=== PATIENT | male | born 1960 | race African-American/Black ===

== ENCOUNTER 2018-01-12 07:47 | Observation (INO) | payer BC ==
[2018-01-12] MEDS ORDERED: NITROGLYCERIN 0.4 MG/TAB 25 TAB/BOTTLE SL ONE (08:29)
[2018-01-12] MEDS ORDERED: ASPIRIN 81 MG TABLET, CHEWABLE PO ONE (08:29)
--- NOTE | 2018-01-12 08:30 | ER Document Report ---
ED General - General Chief Complaint: Chest Pain Stated Complaint: CHEST PAIN Time Seen by Provider: 01/12/18 08:09 Mode of Arrival: Ambulatory Information source: Patient Notes: Patient presents emergency department with complaints of a constant left-sided chest pain that radiates up to his neck and down his left arm since approximately noon yesterday. Patient reports he feels a little short of breath but denies nausea vomiting fever diarrhea. Patient denies history of cardiac disease. Patient reports he does not take medication for anything. He reports that he lifts weights approximately 5 days a week. Denies trauma. Denies overexerting himself with the weights recently. Reports increased pain when he moves. Patient is left-handed. Denies family history of CAD. Reports he was evaluated for chest pain approximately 1-1/2-2 years ago in this hospital. He reports that he received a stress test. Denies history of cardiac cath. TRAVEL OUTSIDE OF THE [place] IN LAST 30 DAYS: No - HPI Patient complains to provider of: CHEST PAIN Onset: Yesterday Onset/Duration: Constant, Persistent Quality of pain: Pressure - Sitting on chest Severity: Severe Pain Level: 4 Associated symptoms: Shortness of breath Exacerbated by: Movement Relieved by: Denies Similar symptoms previously: Yes Recently seen / treated by doctor: No - Related Data Allergies/Adverse Reactions: No Known Allergies Allergy (Verified 09/25/15 08:48) Past Medical History - General Information source: Patient - Social History Smoking Status: Current Every Day Smoker Cigarette use (# per day): Yes Chew tobacco use (# tins/day): No Frequency of alcohol use: Occasional Drug Abuse: None Occupation: [employer] Lives with: Family Family History: Reviewed & Not Pertinent Patient has suicidal ideation: No Patient has homicidal ideation: No - Past Medical History Cardiac Medical History: Denies: Hx Coronary Artery Disease, Hx Heart Attack, Hx Hypertension Pulmonary Medical History: Denies: Hx Asthma, Hx Bronchitis, Hx COPD, Hx Pneumonia Neurological Medical History: Denies: Hx Cerebrovascular Accident, Hx Seizures Endocrine Medical History: Denies: Hx Diabetes Mellitus Type 1, Hx Diabetes Mellitus Type 2 Renal/ Medical History: Denies: Hx Peritoneal Dialysis Musculoskeletal Medical History: Reports Hx Arthritis Psychiatric Medical History: Denies: Hx Depression Past Surgical History: Reports: Hx Appendectomy, Hx Orthopedic Surgery - right knee, Hx Tonsillectomy - adenoids - Immunizations Hx Diphtheria, Pertussis, Tetanus Vaccination: No Review of Systems - Review of Systems Notes: Review HPI for review of systems., All other systems negative Physical Exam - Vital signs Vitals: Temp Pulse Resp BP Pulse Ox 98.1 F 81 16 122/85 99 01/12/18 07:51 01/12/18 07:51 01/12/18 07:51 01/12/18 07:51 01/12/18 07:51 - Notes Notes: PHYSICAL EXAMINATION: GENERAL: Well-appearing and in no acute distress HEAD: Atraumatic, normocephalic. EYES: Pupils equal round, extraocular movements intact, sclera anicteric, conjunctiva are normal. ENT: nares patent, Moist mucous membranes. NECK: Normal range of motion, supple without lymphadenopathy LUNGS: CTAB and equal. No wheezes rales or rhonchi. HEART: Regular rate and rhythm without murmurs chest wall ttp ABDOMEN: Soft, no tenderness. No guarding, no rebound EXTREMITIES: Normal range of motion, no pitting edema. No cyanosis. NEUROLOGICAL: Cranial nerves grossly intact. Normal sensory/motor exams. PSYCH: Normal mood, normal affect. SKIN: Warm, Dry, normal turgor, no rashes or lesions noted - Cardiovascular Rhythm: Regular Heart sounds: Normal auscultation Murmur: No Friction rub: No Dk's crunch: No Gallop: None auscultated Normal capillary refill: Yes Course - Re-evaluation Re-evalutation: 01/12/18 08:35 Patient instructed on plan of care to include redraw cardiac enzymes in approximately 4 hours. Patient also instructed on the importance of letting us know of increased pain. 01/12/18 10:10 Patient resting easily. Reports nitro SL took care of pain. First set of enzymes negative. 01/12/18 13:30 Second troponin negative patient still resting easily. No chest pain at this time. Patient and updated on plan of care to include admission. They agree on admission. Dr Calles consulted, will admit patient to tele. - Vital Signs Vital signs: Temp Pulse Resp BP Pulse Ox 98.1 F 81 15 126/85 H 100 01/12/18 07:51 01/12/18 07:51 01/12/18 15:00 01/12/18 13:00 01/12/18 15:00 - Laboratory Result Diagrams: 01/12/18 08:12 01/12/18 08:12 Laboratory results interpreted by me: 01/12/18 01/12/18 01/12/18 08:12 08:12 08:12 RBC 4.10 L Hgb 12.6 L Hct 37.0 L Hemoglobin A1c % 4.6 L ALT 20 L Creatine Kinase 305 H - Diagnostic Test Radiology reviewed: Image reviewed, Reports reviewed - EXAM DESCRIPTION: CHEST 2 VIEWS COMPLETED DATE/TIME: 01/12/2018 9:30 am REASON FOR STUDY: chest pain COMPARISON: None. EXAM PARAMETERS: NUMBER OF VIEWS: two views TECHNIQUE: Digital Frontal and Lateral radiographic views of the chest acquired. RADIATION DOSE: NA LIMITATIONS: none FINDINGS: LUNGS AND PLEURA: No opacities , masses or pneumothorax. No pleural effusion. MEDIASTINUM AND HILAR STRUCTURES : No masses or contour abnormalities. HEART AND VASCULAR STRUCTURES: Heart normal size. No evidence for failure. BONES: No acute findings. HARDWARE: None in the chest. OTHER: No other significant finding. IMPRESSION: NO ACUTE RADIOGRAPHIC FINDING IN THE CHEST. - EKG Interpretation by Nv EKG shows normal: Sinus rhythm Rate: Normal Rhythm: NSR - Consults [facility] Time consulted: 13:35 Reason for consultation: 01/12/18 13:35 chest pain Consulted provider: will see as inpatient Discharge - Discharge Clinical Impression: Chest pain Qualifiers: Chest pain type: other chest pain Qualified Code(s): R07.89 - Other chest pain Condition: Stable Disposition: ADMITTED INPATIENT Admitting Provider: Hospitalist - [facility] Unit Admitted: Telemetry
[2018-01-12 08:44] LABS: ABSOLUTE EOSINOPHILS # (AUTO) 0.2 10^3/uL (0.0-0.6); ABSOLUTE LYMPHOCYTES (AUTO) 1.4 10^3/uL (0.5-4.7); ABSOLUTE MONOCYTES (AUTO) 0.4 10^3/uL (0.1-1.4); BASOPHILS % (AUTO) 0.9 % (0-2); EOSINOPHILS % (AUTO) 4.3 % (0-6); HEMOGLOBIN 12.6 g/dL (13.5-17.0); LYMPHOCYTES % (AUTO) 35.2 % (13-45); MEAN CORPUSCULAR HEMOGLOBIN 30.7 pg (27.0-33.4); MEAN CORPUSCULAR VOLUME 90 fl (80-97); MONOCYTES % (AUTO) 10.6 % (3-13); PLATELET COUNT 229 10^3/uL (150-450); RED CELL DISTRIBUTION WIDTH 13.6 % (11.5-14.0); TOTAL CELLS COUNTED % (AUTO) 100 %
--- NOTE | 2018-01-12 08:44 | EKG REPORT ---
SEVERITY:- NORMAL ECG - SINUS RHYTHM : Confirmed by: Joshua Moser 12-Jan-2018 08:44:09
[2018-01-12 08:51] LABS: ALANINE AMINOTRANSFERASE 20 U/L (21-72); ALKALINE PHOSPHATASE 59 U/L (38-126); ANION GAP 9 (5-19); ASPARTATE AMINO TRANSFERASE 43 U/L (17-59); BILIRUBIN,DIRECT 0.3 mg/dL (0.0-0.4); BILIRUBIN,TOTAL 1.1 mg/dL (0.2-1.3); BLOOD UREA NITROGEN 15 mg/dL (7-20); CARBON DIOXIDE 29 mmol/L (22-30); CHLORIDE 104 mmol/L (98-107); CREATINE KINASE 305 U/L (55-170); GLUCOSE 105 mg/dL (75-110); POTASSIUM 3.9 mmol/L (3.6-5.0); SODIUM 141.9 mmol/L (137-145); TOTAL PROTEIN 7.2 g/dL (6.3-8.2)
[2018-01-12 09:03] LABS: CREATINE KINASE MB 2.53 ng/mL (<4.55); TROPONIN I 0.019 ng/mL
--- NOTE | 2018-01-12 09:58 | RADIOLOGY REPORT (SQ) ---
EXAM DESCRIPTION: CHEST 2 VIEWS COMPLETED DATE/TIME: 01/12/2018 9:30 am REASON FOR STUDY: chest pain COMPARISON: None. EXAM PARAMETERS: NUMBER OF VIEWS: two views TECHNIQUE: Digital Frontal and Lateral radiographic views of the chest acquired. RADIATION DOSE: NA LIMITATIONS: none FINDINGS: LUNGS AND PLEURA: No opacities, masses or pneumothorax. No pleural effusion. MEDIASTINUM AND HILAR STRUCTURES: No masses or contour abnormalities. HEART AND VASCULAR STRUCTURES: Heart normal size. No evidence for failure. BONES: No acute findings. HARDWARE: None in the chest. OTHER: No other significant finding. IMPRESSION: NO ACUTE RADIOGRAPHIC FINDING IN THE CHEST. TECHNICAL DOCUMENTATION: JOB ID: [id number] [employer]- All Rights Reserved Reading location - IP/workstation name: [email or web address]
[2018-01-12] MEDS ORDERED: ACETAMINOPHEN 325 MG TABLET PO PRN (15:06)
--- NOTE | 2018-01-12 15:33 | PDOC H&P ---
History of Present Illness Admission Date/PCP: 01/12/18 13:45 ROSS MILLER MD Patient complains of: Chest Pain History of Present Illness: RONNIE TERRELL is a 57 year old male with no significant Past medical history patient presented to ED complaining of chest pain for 1 day patient says yesterday around 12 PM when he was at work he started having left-sided chest pain was 8 out of 10 in intensity pressure-like radiating to the left side initially patient did not make too much of it but when he went home he still had the same pain, he also states that the pain was worse with movements and cough. Patient denies having shortness of breath nausea or vomiting. Patient said that he is very active he goes to gym daily but he does not do heavy lifting very often, he also had tenderness to palpation on the left side of his chest. Patient denies any past medical history as well as cardiac problems however he states 3 years ago he had similar chest pain but milder and he was admitted to this hospital a complete cardiac workup was negative for any cardiac abnormalities. Patient also denies any family history of cardiac problems. Patient is current smoker he smokes about 2 cigarettes per day and drinks drinks occasionally he denies any recreational drug abuse. Past Medical History Cardiac Medical History: Denies: Coronary Artery Disease, Myocardial Infarction, Hypertension Pulmonary Medical History: Denies: Asthma, Bronchitis, Chronic Obstructive Pulmonary Disease (COPD), Pneumonia Neurological Medical History: Denies: Seizures Endocrine Medical History: Denies: Diabetes Mellitus Type 1, Diabetes Mellitus Type 2 Musculoskeltal Medical History: Reports: Arthritis Psychiatric Medical History: Denies: Depression Hematology: Denies: Anemia Past Surgical History Past Surgical History: Reports: Appendectomy, Orthopedic Surgery - right knee, Tonsillectomy - adenoids Social History Lives with: Family Smoking Status: Current Every Day Smoker Frequency of Alcohol Use: None Hx Recreational Drug Use: No Drugs: None Hx Prescription Drug Abuse: No Family History Family History: Reviewed & Not Pertinent Parental Family History Reviewed: Yes Children Family History Reviewed: Yes Sibling(s) Family History Reviewed.: Yes Medication/Allergy Home Medications: No Home Medications 01/12/18 Allergies/Adverse Reactions: No Known Allergies Allergy (Verified 09/25/15 08:48) Physical Exam Vital Signs: Temp Pulse Resp BP Pulse Ox 98.1 F 81 11 L 126/85 H 100 01/12/18 07:51 01/12/18 07:51 01/12/18 12:01 01/12/18 13:00 01/12/18 13:00 Results Impressions: Chest X-Ray 01/12/18 08:29 IMPRESSION: NO ACUTE RADIOGRAPHIC FINDING IN THE CHEST. Assessment & Plan - Diagnosis (1) Chest pain Qualifiers: Chest pain type: other chest pain Qualified Code(s): R07.89 - Other chest pain; R07.8 - Other chest pain Is this a current diagnosis for this admission?: Yes Plan: Unlikely cardiac related. Will admit patient to telemetry trend troponins and order stress test to further stratify his risk of having any underlying cardiac problems. Meanwhile we continue aspirin and will also get a lipid panel and hemoglobin A1c. (2) Shortness of breath Is this a current diagnosis for this admission?: Yes Plan: Chest x-ray CBC CMP within normal limits, vitals stable (3) Tobacco use disorder Is this a current diagnosis for this admission?: No Plan: Patient patient was counseled on tobacco cessation
[2018-01-12] MEDS: ENOXAPARIN SODIUM INJ 40 MG/0.4 ML DISP.SYRIN SUBCUT SCH (16:26)
--- NOTE | 2018-01-12 22:11 | EKG REPORT ---
SEVERITY:- NORMAL ECG - SINUS RHYTHM : Confirmed by: Joshua Moser 12-Jan-2018 22:10:31
[2018-01-13 07:45] LABS: HEMATOCRIT 37.5 % (37.9-51.0); HEMOGLOBIN 12.5 g/dL (13.5-17.0); MEAN CORPUSCULAR HGB CONC 33.4 g/dL (32.0-36.0); MEAN CORPUSCULAR VOLUME 90 fl (80-97); PLATELET COUNT 189 10^3/uL (150-450); RED BLOOD COUNT 4.17 10^6/uL (4.35-5.55); RED CELL DISTRIBUTION WIDTH 13.5 % (11.5-14.0); WHITE BLOOD COUNT 3.8 10^3/uL (4.0-10.5)
[2018-01-13 08:03] LABS: TRIGLYCERIDES 61 mg/dL (<150)
[2018-01-13 08:14] LABS: DIRECT LDL 67 mg/dL (<100)
[2018-01-13] MEDS ORDERED: ASPIRIN 81 MG TABLET, CHEWABLE PO SCH (10:00)
[2018-01-13] MEDS: ENOXAPARIN SODIUM INJ 40 MG/0.4 ML DISP.SYRIN SUBCUT SCH (11:37)
[2018-01-13 11:38] VITALS: BP 135/84
== END 2018-01-13 16:39 | disposition home or self-care (01) ==
LOC: ER 07:47 → INTOOBSV 13:45 → EH 13:45 → 4W 19:48
PROVIDERS: ADMIT Internal Medicine; ATTEND Internal Medicine
DX: R07.89 Other chest pain (principal); R06.02 Shortness of breath; F17.210 Nicotine dependence, cigarettes, uncomplicated; Z90.49 Acquired absence of other specified parts of digestive tract
CPT/HCPCS: 93005; 99285; 36415 ×2; 82553; 82550; 85025; 85027; 80053; 84484; 83036; 80061; 93017; 71046; 93010; G0378 ×3; J1650

== ENCOUNTER 2018-04-06 09:46 | Emergency (ER) | payer BC ==
[2018-04-06] MEDS ORDERED: ASPIRIN 81 MG TABLET, CHEWABLE PO ONE (09:49)
[2018-04-06 10:11] LABS: ABSOLUTE BASOPHILS # (AUTO) 0.1 10^3/uL (0.0-0.2); ABSOLUTE EOSINOPHILS # (AUTO) 0.2 10^3/uL (0.0-0.6); ABSOLUTE LYMPHOCYTES (AUTO) 1.7 10^3/uL (0.5-4.7); ABSOLUTE MONOCYTES (AUTO) 0.5 10^3/uL (0.1-1.4); ABSOLUTE NEUT (AUTO) 3.4 10^3/uL (1.7-8.2); BASOPHILS % (AUTO) 1.4 % (0-2); EOSINOPHILS % (AUTO) 3.3 % (0-6); HEMATOCRIT 38.9 % (37.9-51.0); HEMOGLOBIN 12.9 g/dL (13.5-17.0); LYMPHOCYTES % (AUTO) 28.6 % (13-45); MEAN CORPUSCULAR HGB CONC 33.3 g/dL (32.0-36.0); MEAN CORPUSCULAR VOLUME 90 fl (80-97); MONOCYTES % (AUTO) 8.5 % (3-13); PLATELET COUNT 274 10^3/uL (150-450); RED BLOOD COUNT 4.31 10^6/uL (4.35-5.55); SEGMENTED NEUTROPHILS % (AUTO) 58.2 % (42-78); TOTAL CELLS COUNTED % (AUTO) 100 %; WHITE BLOOD COUNT 5.8 10^3/uL (4.0-10.5)
[2018-04-06] MEDS ORDERED: LIDOCAINE 5% (700 MG) TRANSDERMAL ADH..PATCH TP ONE (10:34)
--- NOTE | 2018-04-06 10:43 | RADIOLOGY REPORT (SQ) ---
EXAM DESCRIPTION: CHEST SINGLE VIEW COMPLETED DATE/TIME: 04/06/2018 10:19 am REASON FOR STUDY: bed 10 cp COMPARISON: Two-view chest 01/12/2018 EXAM PARAMETERS: NUMBER OF VIEWS: One view. TECHNIQUE: Single frontal radiographic view of the chest acquired. RADIATION DOSE: NA LIMITATIONS: None. FINDINGS: LUNGS AND PLEURA: No opacities, masses or pneumothorax. No pleural effusion. MEDIASTINUM AND HILAR STRUCTURES: No masses. Contour normal. HEART AND VASCULAR STRUCTURES: Heart normal in size. Normal vasculature. BONES: No acute findings. HARDWARE: None in the chest. OTHER: No other significant finding. IMPRESSION: NO ACUTE RADIOGRAPHIC FINDING IN THE CHEST. TECHNICAL DOCUMENTATION: JOB ID: [id number] [employer]- All Rights Reserved Reading location - IP/workstation name: [email or web address]
[2018-04-06 11:25] LABS: ALANINE AMINOTRANSFERASE 18 U/L (21-72); ALBUMIN 3.7 g/dL (3.5-5.0); ALKALINE PHOSPHATASE 65 U/L (38-126); ANION GAP 7 (5-19); ASPARTATE AMINO TRANSFERASE 26 U/L (17-59); BILIRUBIN,DIRECT 0.2 mg/dL (0.0-0.4); BILIRUBIN,TOTAL 0.7 mg/dL (0.2-1.3); BLOOD UREA NITROGEN 15 mg/dL (7-20); CARBON DIOXIDE 29 mmol/L (22-30); CHLORIDE 106 mmol/L (98-107); CREATINE KINASE 161 U/L (55-170); GLUCOSE 96 mg/dL (75-110); LIPASE 73.8 U/L (23-300); POTASSIUM 4.2 mmol/L (3.6-5.0); SODIUM 142.1 mmol/L (137-145); TOTAL PROTEIN 6.3 g/dL (6.3-8.2)
[2018-04-06 11:35] LABS: CREATINE KINASE MB 2.78 ng/mL (<4.55)
--- NOTE | 2018-04-06 11:36 | RADIOLOGY REPORT (SQ) ---
EXAM DESCRIPTION: SHOULDER BILAT 2 OR MORE VIEWS COMPLETED DATE/TIME: 04/06/2018 11:17 am REASON FOR STUDY: pain chronic bilateral shoulder and neck pain, with sharp pain on movement of bot h shoulders COMPARISON: None. NUMBER OF VIEWS: Three views. TECHNIQUE: Internal rotation, external rotation, and Y view images acquired of the right and left sh oulder. LIMITATIONS: None. FINDINGS: MINERALIZATION: Normal. BONES: No acute fracture or dislocation. No worrisome bone lesions. JOINTS: No right or left glenohumeral dislocation. Mild bony spurring right glenohumeral joint. Mod erate bony spurring right acromioclavicular joint, with mild narrowing of the subacromial space. Lef t acromioclavicular and glenohumeral joint unremarkable. VISUALIZED LUNGS AND RIBS: No pneumothorax. No rib fracture. SOFT TISSUES: No radiopaque foreign body. OTHER: No other significant finding. IMPRESSION: Right acromioclavicular and glenohumeral joint bony spurring. No significant left acrom ioclavicular or glenohumeral joint bony spurring No right or left shoulder acute fracture or dislocation. TECHNICAL DOCUMENTATION: JOB ID: [id number] [employer]- All Rights Reserved Reading location - IP/workstation name: [email or web address]
[2018-04-06 11:37] LABS: TROPONIN I < 0.012 ng/mL
[2018-04-06] MEDS ORDERED: GABAPENTIN 100 MG CAPSULE PO ONE (12:30)
--- NOTE | 2018-04-06 12:52 | ER Document Report ---
ED General - General Chief Complaint: Chest Pain > 30 Stated Complaint: CHEST PAIN Time Seen by Provider: 04/06/18 10:06 TRAVEL OUTSIDE OF THE [place] IN LAST 30 DAYS: No - HPI Patient complains to provider of: Chest pain shoulder pains Notes: Patient coming in for shoulder pain is ongoing he states for last 3 weeks. Patient states most pain is in his left shoulder however developed chest pain earlier this morning. Patient denies any trauma denies any fever chills nausea by diarrhea. Patient endorses had [facility] of his [facility] and of the [facility] no critical pathology was found at that time. Patient states pain sharp shooting associated numbness and tingling feeling down the arm. Otherwise patient is resting healthy upon my evaluation denies any recent travel antibiotics - Related Data Allergies/Adverse Reactions: No Known Allergies Allergy (Verified 04/06/18 09:48) Past Medical History - Social History Smoking Status: Unknown if Ever Smoked Family History: Reviewed & Not Pertinent Patient has suicidal ideation: No Patient has homicidal ideation: No - Past Medical History Cardiac Medical History: Denies: Hx Coronary Artery Disease, Hx Heart Attack, Hx Hypertension Pulmonary Medical History: Denies: Hx Asthma, Hx Bronchitis, Hx COPD, Hx Pneumonia Neurological Medical History: Denies: Hx Cerebrovascular Accident, Hx Seizures Endocrine Medical History: Denies: Hx Diabetes Mellitus Type 1, Hx Diabetes Mellitus Type 2 Renal/ Medical History: Denies: Hx Peritoneal Dialysis Musculoskeletal Medical History: Reports Hx Arthritis Psychiatric Medical History: Denies: Hx Depression Past Surgical History: Reports: Hx Appendectomy, Hx Orthopedic Surgery - right knee, Hx Tonsillectomy - adenoids - Immunizations Hx Diphtheria, Pertussis, Tetanus Vaccination: No Review of Systems - Review of Systems Constitutional: No symptoms reported EENT: No symptoms reported Cardiovascular: Chest pain Respiratory: No symptoms reported Gastrointestinal: No symptoms reported Genitourinary: No symptoms reported Male Genitourinary: No symptoms reported Musculoskeletal: Other - Shoulder pain Skin: No symptoms reported Hematologic/Lymphatic: No symptoms reported Neurological/Psychological: No symptoms reported -: Yes All other systems reviewed and negative Physical Exam - Vital signs Vitals: Resp Pulse Ox 12 100 04/06/18 09:57 04/06/18 09:57 Interpretation: Normal - General General appearance: Appears well, Alert - HEENT Head: Normocephalic, Atraumatic Eyes: Normal Pupils: PERRL - Respiratory Respiratory status: No respiratory distress Chest status: Nontender Breath sounds: Normal Chest palpation: Normal - Cardiovascular Rhythm: Regular Heart sounds: Normal auscultation Murmur: No - Abdominal Inspection: Normal Distension: No distension Bowel sounds: Normal Tenderness: Nontender Organomegaly: No organomegaly - Back Back: Normal, Nontender - Extremities General upper extremity: Normal inspection, Tender - Palpation of the shoulders bilaterally tender along the acromion 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 No: Marciano's sign - Neurological Neuro grossly intact: Yes Cognition: Normal Orientation: AAOx4 [place] Coma Scale Eye Opening: Spontaneous Yazan Coma Scale Verbal: Oriented [place] Coma Scale Motor: Obeys Commands Yazan Coma Scale Total: 15 Speech: Normal Motor strength normal: LUE, RUE, LLE, RLE Sensory: Normal - Psychological Associated symptoms: Normal affect, Normal mood - Skin Skin Temperature: Warm Skin Moisture: Dry Skin Color: Normal Course - Re-evaluation Re-evalutation: 04/06/18 15:25 The patient has atypical chest pain as the patient's chest pain is not suggestive of pulmonary embolus, cardiac ischemia, aortic dissection, or other serious etiology. Given the extremely low risk of these diagnoses further testing and evaluation for these possibilities does not appear to be indicated at this time. The patient has been instructed to return if the symptoms worsen or change in any way. X-rays of the shoulder showed right-sided arthritic changes my personal read shows some calcification of the AC joint. On the left. Discussed at length with the patient reviewed recent stress test that was otherwise negative physical exercise stress test. Patient is EKG troponins are negative. Recommended follow-up with primary care physician for possible MRI for the etiology of his muscle skeletal pain. Recommended the patient start on Neurontin along with Tylenol Motrin for pain control. - Vital Signs Vital signs: Temp Pulse Resp BP Pulse Ox 12 147/92 H 100 04/06/18 13:15 04/06/18 13:16 04/06/18 13:14 - Laboratory Result Diagrams: 04/06/18 10:00 04/06/18 10:39 Laboratory results interpreted by me: 04/06/18 04/06/18 10:00 10:39 RBC 4.31 L Hgb 12.9 L ALT 18 L Discharge - Discharge Clinical Impression: Chest pain, Shoulder pain, Arthritis of right shoulder region Condition: Good Disposition: HOME, SELF-CARE Instructions: Arthritis ([facility]), Chest Wall Pain ([facility]), Chest Pain of Unclear Cause ([facility]), Family Physicians / Practices, Shoulder Injury ([facility]) Additional Instructions: Your laboratory studies chest x-ray EKG did not show any critical pathology today. Your shoulder x-ray does show some arthritic changes in the right very minimal changes in the left I would highly recommend she follow-up with your primary care physician for further imaging studies to evaluate her bilateral shoulder pain. Return to the ER if symptoms worsen. I recommend taking Tylenol Motrin for pain control. He may also try [id number] lidocaine patches. Out with sharp shooting nerve pain we will start you on a medication called Neurontin. Would call your physician today to schedule appointment in 1- 2 weeks. Prescriptions: Gabapentin [Neurontin 100 mg Capsule] 100 mg PO Q12 #60 capsule Forms: Return to Work
[2018-04-06 13:21] VITALS: BP 147/92
--- NOTE | 2018-04-07 07:10 | EKG REPORT ---
SEVERITY:- ABNORMAL ECG - SINUS RHYTHM CONSIDER LEFT VENTRICULAR HYPERTROPHY : Confirmed by: Joshua Moser 07-Apr-2018 07:09:43
== END 2018-04-06 13:23 | disposition home or self-care (01) ==
LOC: ER 09:46
DX: R07.89 Other chest pain (principal); M19.011 Primary osteoarthritis, right shoulder; R20.0 Anesthesia of skin; R20.2 Paresthesia of skin
CPT/HCPCS: 36415; 71045; 80053; 82550; 82553; 83690; 84484; 85025; 85379; 93005; 93010; 99285

== ENCOUNTER → 2018-09-03 | Outpatient (CLI) | payer BC ==
--- NOTE | 2018-09-05 13:25 | RADIOLOGY REPORT (SQ) ---
EXAM DESCRIPTION: MRI RT UPPER EXTREMITY COMBO COMPLETED DATE/TIME: 09/03/2018 9:28 pm REASON FOR STUDY: M25.511 PAIN IN RIGHT SHOULDER M25.511 PAIN IN RIGHT SHOULDER M79.89 OTHER SPECI FIED SOFT TISSUE DISORDERS COMPARISON: None. TECHNIQUE: Multiplanar imaging of the right proximal arm to include T1-weighted, postcontrast T1-ju ghted, and T2-weighted images. CONTRAST TYPE AND DOSE: 15 mL Dotarem. RENAL FUNCTION: Normal GFR greater than 60. LIMITATIONS: None. FINDINGS: BONE MARROW: No suspicious lesions. See separately dictated MRI shoulder from same date. SOFT TISSUES: No skin surface markers are in place to denote the region of interest. Per clinic note , the area lies lateral and inferior to the deltoid muscle. In the subcutaneous tissues overlying th e deltoid, there is slight bulge of otherwise normal-appearing subcutaneous fat. This could represen t an unencapsulated lipoma. No suspicious features. No enhancing masses. Other regional soft tissu es look generally unremarkable. OTHER: No other significant finding. IMPRESSION: 1. Slightly prominent fatty tissue along the lateral inferior deltoid. No discrete mass otherwise no faustina. No enhancing lesions. 2. Please see separately dictated standard MRI shoulder same date for findings related to the shoulde r proper. TECHNICAL DOCUMENTATION: JOB ID: [id number] [employer]- All Rights Reserved Reading location - IP/workstation name: [email or web address]
--- NOTE | 2018-09-05 13:33 | RADIOLOGY REPORT (SQ) ---
EXAM DESCRIPTION: MRI RT UPPER JOINT WITHOUT COMPLETED DATE/TIME: 09/03/2018 9:28 pm REASON FOR STUDY: M25.511 PAIN IN RIGHT SHOULDER M25.511 PAIN IN RIGHT SHOULDER M79.89 OTHER SPECI FIED SOFT TISSUE DISORDERS COMPARISON: Soft tissue mass MRI from same date, see separate dictation. TECHNIQUE: Right shoulder images acquired and stored on PACS. Multiplanar imaging to include fat sen sitive sequences such as T1, water sensitive sequences such as FST2/STIR, cartilage sensitive sequenc es such as FSPD/gradient-echo sequences. LIMITATIONS: Moderate motion artifact on the axial proton density fat saturated sequence. Likely du e to the protracted scanner time necessary to perform both studies today. FINDINGS: BONE MARROW AND CORTEX: See cuff related changes below. JOINT OR BURSAL EFFUSION: Mild effusion. GLENO-HUMERAL ARTICULATION: Normal articulation. No subluxation. No cystic change. No osteophytes or cartilage loss. ACROMION AND AC JOINT: Predominantly dorsal hypertrophic degenerative overgrowth, fairly mild. ROTATOR CUFF AND INTERVAL: Tendinosis and areas of partial tear along cuff insertion. Prominent reac tive bone changes and edema in the lateral/ posterior humeral head along infraspinatus insertion. No cuff muscle atrophy. No full-thickness tear. LABRUM AND BICEPS LABRAL COMPLEX: Suspect type 2 lesion. Tear along the posterosuperior labrum is likely associated with mild paralabral cyst formation. Biceps tendon relatively intact. REMAINDER OF LABRUM AND IGHL : Limited assessment. Generalized probable degenerative loss. PERIARTICULAR AND ADJACENT SOFT TISSUES: No masses or abnormal nodes. OTHER: No other significant finding. IMPRESSION: 1. Cuff disease. Partial tear with considerable reactive bone change in the humeral head. Some of t his may be high-grade partial. No full-thickness gap in the cuff. No atrophy. 2. Superior labral tear. 3. Glenohumeral arthropathy. TECHNICAL DOCUMENTATION: JOB ID: [id number] [employer]- All Rights Reserved Reading location - IP/workstation name: [email or web address]
== END ==
LOC: RAD 19:10
PROVIDERS: ATTEND Physician Assistant
DX: M25.511 Pain in right shoulder (principal); M79.89 Other specified soft tissue disorders

== ENCOUNTER → 2018-10-08 | Outpatient (CLI) | payer BC ==
--- NOTE | 2018-10-08 13:42 | RADIOLOGY REPORT (SQ) ---
EXAM DESCRIPTION: MRI RT LOWER JOINT WITHOUT COMPLETED DATE/TIME: 10/08/2018 11:56 am REASON FOR STUDY: PAIN IN RIGHT KNEE M25.561 PAIN IN RIGHT KNEE COMPARISON: None. TECHNIQUE: Rightknee images acquired and stored on PACS. Multiplanar images include fat sensitive s equences as T1, water sensitive sequences as FST2 or STIR, cartilage sensitive sequences as FSPD, and gradient echo sequences. LIMITATIONS: None. FINDINGS: JOINT AND BURSAE: Small suprapatellar knee joint effusion BONE CORTEX AND MARROW: Subcortical cysts along the medial edge medial tibial plateau. No marrow sig nal abnormalities worrisome for occult fracture or aggressive marrow replacement process ACL: High signal in the distal most attachment of the ACL which is still intact on sagittal images 11 -13. PCL: Intact. MCL: Intact. No periligamentous edema or fluid. LCL: Intact. No periligamentous edema or fluid. LATERAL MENISCUS: No tears. No abnormal signal. MEDIAl MENISCUS: Small tear posterior horn medial meniscus. There is a 3.5 x 1 cm multi septated par ameniscal cyst along the posterior horn medial meniscus best shown on coronal image 21, sagittal imag e 15 and axial image 19. MEDIAL COMPARTMENT: Focal high-grade chondromalacia in the weight-bearing surface medial femoral cond yles coronal image 16. No bone bruises or reactive marrow edema. No osteophytes. LATERAL COMPARTMENT: Cartilage preserved. No bone bruises or reactive marrow edema. No osteophytes. PATELLA: Diffuse high-grade patellar chondromalacia. No subchondral cysts. Medial and lateral retinac gabbie intact. EXTENSOR MECHANISM: Intact. Quadriceps and patella tendons normal. SOFT TISSUES: Adjacent muscles and subcutaneous tissues normal. Normal flow void in popliteal artery and vein. OTHER: No other significant finding. IMPRESSION: Multi septated parameniscal cyst, along the posterior horn medial meniscus High-grade chondromalacia patella TECHNICAL DOCUMENTATION: JOB ID: [id number] [employer]- All Rights Reserved Reading location - IP/workstation name: [email or web address]
== END ==
LOC: RAD 11:15
PROVIDERS: ATTEND Physician Assistant
DX: M25.561 Pain in right knee (principal); M22.41 Chondromalacia patellae, right knee

== ENCOUNTER 2019-03-02 11:03 | Emergency (ER) | payer OTHER, BC ==
[2019-03-02] MEDS ORDERED: ACETAMINOPHEN 325 MG TABLET PO ONE (11:35)
[2019-03-02] MEDS ORDERED: IBUPROFEN 600 MG TABLET PO ONE (11:35)
--- NOTE | 2019-03-02 11:38 | ER Document Report ---
HPI - HPI Time Seen by Provider: 03/02/19 11:29 Pain Level: 5 Context: Patient is a 58-year-old male who presents to the emergency department with a chief complaint of right shoulder pain. 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 Pain is primarily on the posterior aspect of the shoulder. - REPRODUCTIVE Reproductive: DENIES: : Past Medical History - Social History Smoking Status: Former Smoker Chew tobacco use (# tins/day): No Frequency of alcohol use: None Drug Abuse: None Family History: Reviewed & Not Pertinent Patient has suicidal ideation: No Patient has homicidal ideation: No - Past Medical History Cardiac Medical History: Denies: Hx Coronary Artery Disease, Hx Heart Attack, Hx Hypertension Pulmonary Medical History: Denies: Hx Asthma, Hx Bronchitis, Hx COPD, Hx Pneumonia Neurological Medical History: Denies: Hx Cerebrovascular Accident, Hx Seizures Endocrine Medical History: Denies: Hx Diabetes Mellitus Type 1, Hx Diabetes Mellitus Type 2 Renal/ Medical History: Denies: Hx Peritoneal Dialysis Musculoskeletal Medical History: Reports Hx Arthritis Psychiatric Medical History: Denies: Hx Depression Past Surgical History: Reports: Hx Appendectomy, Hx Orthopedic Surgery - right knee, Hx Tonsillectomy - adenoids - Immunizations Hx Diphtheria, Pertussis, Tetanus Vaccination: No Vertical Provider Document - INFECTION CONTROL TRAVEL OUTSIDE OF THE [place] IN LAST 30 DAYS: No Course - Vital Signs Vital signs: Temp Pulse Resp BP Pulse Ox 97.6 F 69 20 136/89 H 100 03/02/19 11:13 03/02/19 11:13 03/02/19 11:13 03/02/19 11:13 03/02/19 11:13 Discharge - Discharge Referrals: GUILLERMINA ONTIVEROS PA [Primary Care Provider] - Follow up as needed
--- NOTE | 2019-03-02 12:21 | ER Document Report ---
ED Medical Screen (RME) - General Chief Complaint: Shoulder Injury Stated Complaint: RIGHT SHOULDER INJURY Time Seen by Provider: 03/02/19 11:29 Primary Care Provider: GUILLERMINA ONTIVEROS PA [Primary Care Provider] - Follow up as needed Notes: Patient is a 58-year-old male who presents to the emergency department with a chief complaint of right shoulder pain. 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 Pain is primarily on the posterior aspect of the shoulder. Exam: Tenderness to posterior aspect of right lateral shoulder. I have greeted and performed a rapid initial assessment of this patient. A comprehensive ED assessment and evaluation of the patient, analysis of test results and completion of medical decision making process will be conducted by an additional ED providers. TRAVEL OUTSIDE OF THE [place] IN LAST 30 DAYS: No - Related Data Allergies/Adverse Reactions: No Known Allergies Allergy (Verified 03/02/19 11:27) Past Medical History - Social History Chew tobacco use (# tins/day): No Frequency of alcohol use: None Drug Abuse: None - Past Medical History Cardiac Medical History: Denies: Hx Coronary Artery Disease, Hx Heart Attack, Hx Hypertension Pulmonary Medical History: Denies: Hx Asthma, Hx Bronchitis, Hx COPD, Hx Pneumonia Neurological Medical History: Denies: Hx Cerebrovascular Accident, Hx Seizures Endocrine Medical History: Denies: Hx Diabetes Mellitus Type 1, Hx Diabetes Mellitus Type 2 Renal/ Medical History: Denies: Hx Peritoneal Dialysis Musculoskeltal Medical History: Reports Hx Arthritis Psychiatric Medical History: Denies: Hx Depression Past Surgical History: Reports: Hx Appendectomy, Hx Orthopedic Surgery - right knee, Hx Tonsillectomy - adenoids - Immunizations Hx Diphtheria, Pertussis, Tetanus Vaccination: No Physical Exam - Vital signs Vitals: Temp Pulse Resp BP Pulse Ox 97.6 F 69 20 136/89 H 100 03/02/19 11:13 03/02/19 11:13 03/02/19 11:13 03/02/19 11:13 03/02/19 11:13 Course - Vital Signs Vital signs: Temp Pulse Resp BP Pulse Ox 97.6 F 69 20 136/89 H 100 03/02/19 11:13 03/02/19 11:13 03/02/19 11:13 03/02/19 11:13 03/02/19 11:13 Doctor's Discharge - Discharge Referrals: GUILLERMINA ONTIVEROS PA [Primary Care Provider] - Follow up as needed
--- NOTE | 2019-03-02 12:26 | RADIOLOGY REPORT (SQ) ---
EXAM DESCRIPTION: SHOULDER RIGHT 2 OR MORE VIEWS COMPLETED DATE/TIME: 03/02/2019 12:18 pm REASON FOR STUDY: shoulder pain COMPARISON: None. NUMBER OF VIEWS: Three views. TECHNIQUE: Internal rotation, external rotation, and Y view images acquired of the right shoulder. LIMITATIONS: None. FINDINGS: MINERALIZATION: Normal. BONES: No acute fracture. No worrisome bone lesions. JOINTS: No dislocation. Acromioclavicular and glenohumeral osteophytosis. Subchondral cystic change at the superolateral humeral head. VISUALIZED LUNGS AND RIBS: No pneumothorax. No rib fracture. SOFT TISSUES: No radiopaque foreign body. OTHER: No other significant finding. IMPRESSION: No acute bony abnormality. Moderate glenohumeral and acromioclavicular osteoarthropathy. TECHNICAL DOCUMENTATION: JOB ID: [id number] [employer]- All Rights Reserved Reading location - IP/workstation name: [email or web address]
--- NOTE | 2019-03-02 12:55 | ER Document Report ---
ED Extremity Problem, Upper - General Chief Complaint: Shoulder Injury Stated Complaint: RIGHT SHOULDER INJURY Time Seen by Provider: 03/02/19 11:29 Primary Care Provider: GUILLERMINA ONTIVEROS PA [Primary Care Provider] - Follow up in 3-5 days SARAH BAJWA MD [ACTIVE PROVISIONAL STAFF] - Follow up in 3-5 days (for orthopedic follow up) TRAVEL OUTSIDE OF THE [place] IN LAST 30 DAYS: No - HPI Notes: 58-year-old male to the emergency department with complaints of right shoulder pain that began after a locker fell at work. He states that he was trying to prevent the locker from hitting his right knee when he tried to catch it with the right arm. He states that the locker fell straight down onto the floor and pulled his shoulder. Since then he has had pain and has difficulty completely lifting the arm over his head. He denies any other injuries. He was given Tylenol and Motrin by triage. He is left hand dominant. - Related Data Allergies/Adverse Reactions: No Known Allergies Allergy (Verified 03/02/19 11:27) Past Medical History - General Information source: Patient - Social History Smoking Status: Former Smoker Chew tobacco use (# tins/day): No Frequency of alcohol use: None Drug Abuse: None Family History: Reviewed & Not Pertinent Patient has suicidal ideation: No Patient has homicidal ideation: No - Past Medical History Cardiac Medical History: Denies: Hx Coronary Artery Disease, Hx Heart Attack, Hx Hypertension Pulmonary Medical History: Denies: Hx Asthma, Hx Bronchitis, Hx COPD, Hx Pneumonia Neurological Medical History: Denies: Hx Cerebrovascular Accident, Hx Seizures Endocrine Medical History: Denies: Hx Diabetes Mellitus Type 1, Hx Diabetes Mellitus Type 2 Renal/ Medical History: Denies: Hx Peritoneal Dialysis Musculoskeletal Medical History: Reports Hx Arthritis Psychiatric Medical History: Denies: Hx Depression Past Surgical History: Reports: Hx Appendectomy, Hx Orthopedic Surgery - right knee, Hx Tonsillectomy - adenoids - Immunizations Hx Diphtheria, Pertussis, Tetanus Vaccination: No Review of Systems - Review of Systems Constitutional: denies: Chills, Fever EENT: No symptoms reported Cardiovascular: denies: Chest pain, Palpitations, Orthopnea, Dyspnea, Syncope, Dizziness, Lightheaded Respiratory: denies: Cough, Short of breath Gastrointestinal: denies: Abdominal pain, Diarrhea, Nausea, Vomiting Musculoskeletal: See HPI, Joint pain Skin: No symptoms reported Hematologic/Lymphatic: No symptoms reported Neurological/Psychological: No symptoms reported -: Yes All other systems reviewed and negative Physical Exam - Vital signs Vitals: Temp Pulse Resp BP Pulse Ox 97.6 F 69 20 136/89 H 100 03/02/19 11:13 03/02/19 11:13 03/02/19 11:13 03/02/19 11:13 03/02/19 11:13 Interpretation: Normal - General General appearance: Appears well, Alert In distress: None - HEENT Head: Normocephalic, Atraumatic Eyes: Normal Pupils: PERRL - Respiratory Respiratory status: No respiratory distress Chest status: Nontender Breath sounds: Normal Chest palpation: Normal - Cardiovascular Rhythm: Regular Heart sounds: Normal auscultation Murmur: No - Extremities Shoulder: Tender - to the right shoulder joint, particularly in the anterior portion of the gleno-humeral joint, there is TTP. Patient cannot forward flex the shoulder greater than 60 degrees. Noted just below the joint, there is a large mobile lipoma on the arm -- measuring approximatley 5 cm in diameter. This is not TTP. There is no evidence of gross deformity, no evidence of shoulder separation. non tender to palpation of the right elbow, wrist, and hand. 5/5 strength in bilateral hands. No snuff box tenderness. Cap refill is less than 2 sec. radial pulses intact and equal - Neurological Neuro grossly intact: Yes Cognition: Normal Orientation: AAOx4 Yazan Coma Scale Eye Opening: Spontaneous Yazan Coma Scale Verbal: Oriented Geismar Coma Scale Motor: Obeys Commands Geismar Coma Scale Total: 15 Speech: Normal Cranial nerves: Normal Cerebellar coordination: Normal Motor strength normal: LUE, RUE, LLE, RLE Sensory: Normal - Psychological Associated symptoms: Normal affect, Normal mood - Skin Skin Temperature: Warm Skin Moisture: Dry Skin Color: Normal Course - Re-evaluation Re-evalutation: Shoulder X-Ray 03/02/19 11:35 IMPRESSION: No acute bony abnormality. Moderate glenohumeral and acromioclavicular osteoarthropathy. Impression: Right shoulder injury -- likely a strain. No dislocation, separation, or fracture seen on XR. noted OA. Will sling the patient, treat pain and send to ortho for follow up. Patient agrees with the plan. - Vital Signs Vital signs: Temp Pulse Resp BP Pulse Ox 97.4 F 65 18 144/98 H 100 03/02/19 12:59 03/02/19 12:59 03/02/19 12:59 03/02/19 12:59 03/02/19 12:59 - Diagnostic Test Radiology reviewed: Reports reviewed Procedures - Immobilization Right Arm Pre-Proc Neuro Vasc Exam: Normal Immobilizer type: Sling Post-Proc Neuro Vasc Exam: Normal Alignment checked and good: Yes Discharge - Discharge Clinical Impression: Right shoulder injury Qualifiers: Encounter type: initial encounter Qualified Code(s): S49.91XA - Unspecified injury of right shoulder and upper arm, initial encounter Right shoulder pain Qualifiers: Chronicity: acute Qualified Code(s): M25.511 - Pain in right shoulder Condition: Stable Disposition: HOME, SELF-CARE Instructions: Shoulder Injury ([facility]) Additional Instructions: USE SLING. FOLLOW UP WITH ORTHOPEDIST. RETURN IF WORSE. TAKE MEDICINES PRESCRIBED. Prescriptions: Hydrocodone/Acetaminophen [[place] 5-325 mg Tablet] 1 tab PO Q6H #10 tablet Methocarbamol [Robaxin 500 mg Tablet] 500 mg PO QID #20 tablet Forms: Return to Work Referrals: GUILLERMINA ONTIVEROS PA [Primary Care Provider] - Follow up in 3-5 days SARAH BAJWA MD [ACTIVE PROVISIONAL STAFF] - Follow up in 3-5 days (for orthopedic follow up)
[2019-03-02 13:09] VITALS: BP 144/98
== END 2019-03-02 13:10 | disposition home or self-care (01) ==
LOC: ER 11:03
DX: S49.91XA Unspecified injury of right shoulder and upper arm, initial encounter (principal); X50.0XXA Overexertion from strenuous movement or load, initial encounter; Y99.0 Civilian activity done for income or pay
CPT/HCPCS: 99283

== ENCOUNTER → 2019-06-02 | Outpatient (CLI) | payer OTHER, BC ==
--- NOTE | 2019-06-02 09:27 | EKG REPORT ---
SEVERITY:- NORMAL ECG - SINUS RHYTHM : Confirmed by: Joshua Moser 02-Jun-2019 09:26:51
[2019-06-02 09:57] LABS: ABSOLUTE EOSINOPHILS # (AUTO) 0.3 10^3/uL (0.0-0.6); ABSOLUTE LYMPHOCYTES (AUTO) 1.9 10^3/uL (0.5-4.7); ABSOLUTE MONOCYTES (AUTO) 0.6 10^3/uL (0.1-1.4); ABSOLUTE NEUT (AUTO) 2.6 10^3/uL (1.7-8.2); BASOPHILS % (AUTO) 0.9 % (0-2); EOSINOPHILS % (AUTO) 6.3 % (0-6); HEMATOCRIT 38.1 % (37.9-51.0); HEMOGLOBIN 12.7 g/dL (13.5-17.0); LYMPHOCYTES % (AUTO) 34.3 % (13-45); MEAN CORPUSCULAR HEMOGLOBIN 29.6 pg (27.0-33.4); MEAN CORPUSCULAR HGB CONC 33.2 g/dL (32.0-36.0); MEAN CORPUSCULAR VOLUME 89 fl (80-97); MONOCYTES % (AUTO) 10.2 % (3-13); PLATELET COUNT 293 10^3/uL (150-450); RED BLOOD COUNT 4.28 10^6/uL (4.35-5.55); RED CELL DISTRIBUTION WIDTH 13.5 % (11.5-14.0); SEGMENTED NEUTROPHILS % (AUTO) 48.3 % (42-78); TOTAL CELLS COUNTED % (AUTO) 100 %; WHITE BLOOD COUNT 5.4 10^3/uL (4.0-10.5)
[2019-06-02 10:08] LABS: APPEARANCE,URINE CLEAR; BILIRUBIN,URINE NEGATIVE (NEGATIVE); COLOR,URINE YELLOW; GLUCOSE, URINE NEGATIVE (NEGATIVE); KETONES,URINE NEGATIVE (NEGATIVE); LEUKOCYTE ESTERASE,URINE NEGATIVE (NEGATIVE); NITRITE,URINE NEGATIVE (NEGATIVE); PROTEIN,URINE NEGATIVE (NEGATIVE); URINE SPECIFIC GRAVITY 1.023
[2019-06-02 10:26] LABS: ANION GAP 9 (5-19); BLOOD UREA NITROGEN 14 mg/dL (7-20); CALCIUM 9.8 mg/dL (8.4-10.2); CARBON DIOXIDE 27 mmol/L (22-30); CHLORIDE 100 mmol/L (98-107); GLUCOSE 92 mg/dL (75-110); POTASSIUM 4.7 mmol/L (3.6-5.0)
--- NOTE | 2019-06-02 12:08 | RADIOLOGY REPORT (SQ) ---
EXAM DESCRIPTION: CHEST PA/LATERAL COMPLETED DATE/TIME: 06/02/2019 9:40 am REASON FOR STUDY: PRE-OP COMPARISON: 04/06/2018 EXAM PARAMETERS: NUMBER OF VIEWS: two views TECHNIQUE: Digital Frontal and Lateral radiographic views of the chest acquired. RADIATION DOSE: NA LIMITATIONS: none FINDINGS: LUNGS AND PLEURA: Right apical pleural thickening. No evidence of pulmonary edema or pneu monia. MEDIASTINUM AND HILAR STRUCTURES: No masses or contour abnormalities. HEART AND VASCULAR STRUCTURES: Heart normal size. No evidence for failure. BONES: No acute findings. HARDWARE: None in the chest. OTHER: No other significant finding. IMPRESSION: No acute findings in the chest. TECHNICAL DOCUMENTATION: JOB ID: [id number] [employer]- All Rights Reserved Reading location - IP/workstation name: [email or web address]
== END ==
LOC: OD 08:50
PROVIDERS: ATTEND Orthopaedic Surgery
DX: Z01.812 Encounter for preprocedural laboratory examination (principal); Z01.811 Encounter for preprocedural respiratory examination; Z01.810 Encounter for preprocedural cardiovascular examination; Z01.818 Encounter for other preprocedural examination
CPT/HCPCS: 36415; 71046; 80048; 81001; 85025; 93005; 93010

== ENCOUNTER 2019-06-21 08:22 | Observation (INO) | payer BC, OTHER ==
[~2019-06-21 08:22] MED LIST: BUPIVACAINE INJ/PF LIPOSOME/PF 266 MG/20 ML SDV INJ PRN; CEFAZOLIN INJ 1 GM VIAL IV PRN; IBUPROFEN 800 MG in NORMAL SALINE 250 ML IV PRN; LACTATED RINGERS 1000 ML IV PRN; OXYCODONE HCL SR 10 MG TABLET PO PRN; PANTOPRAZOLE SODIUM 20 MG TABLET.DR PO PRN; VANCOMYCIN HCL 1,000 MG in DEXTROSE 5%-WATER 250 ML IV PRN
[2019-06-21] MEDS ORDERED: OXYCODONE HCL SR 10 MG TABLET PO ONE (08:42)
[2019-06-21] MEDS ORDERED: PANTOPRAZOLE SODIUM 20 MG TABLET.DR PO ONE (08:42)
[2019-06-21] MEDS ORDERED: FAMOTIDINE INJ/PF 20 MG/2 ML SDV IV PRN (09:24)
[2019-06-21] MEDS ORDERED: METOCLOPRAMIDE HCL INJ/PF 10 MG/2 ML SDV IV PRN (09:25)
[2019-06-21] MEDS ORDERED: FAMOTIDINE INJ/PF 20 MG/2 ML SDV IV ONE (09:26)
[2019-06-21] MEDS ORDERED: METOCLOPRAMIDE HCL INJ/PF 10 MG/2 ML SDV ONE (09:26)
[2019-06-21] MEDS ORDERED: RINGERS SOLUTION,LACTATED 1,000 ML IV PRN (09:26)
[2019-06-21] MEDS ORDERED: CEFAZOLIN 1 GM/D5W RTU 1 GM/50 ML RTUPB IV ONE (09:36)
[2019-06-21] MEDS ORDERED: PHENYLEPHRINE HCL INJ/PF 10 MG/1 ML SDV ONE (09:44)
[2019-06-21] MEDS ORDERED: NEOSTIGMINE METHYLSULFATE 10 MG/10 ML VIAL ONE (09:44)
[2019-06-21] MEDS ORDERED: GLYCOPYRROLATE 1 MG/5 ML VIAL ONE (09:44)
[2019-06-21] MEDS ORDERED: EPINEPHRINE INJ/PF 1 MG/1 ML AMPULE ONE (11:01)
[2019-06-21] MEDS ORDERED: FENTANYL CITRATE INJ/PF 250 MCG/5 ML AMPULE ONE (11:06)
[2019-06-21] MEDS ORDERED: DEXAMETHASONE SOD PHOSPHATE INJ 4 MG/1 ML VIAL ONE (11:06)
[2019-06-21] MEDS ORDERED: PROPOFOL INJ 200 MG/20 ML VIAL IV ONE (11:06)
[2019-06-21] MEDS ORDERED: MIDAZOLAM 2 MG/2 ML INJ ONE (11:06)
[2019-06-21] MEDS ORDERED: ONDANSETRON HCL INJ/PF 4 MG/2 ML SDV ONE (11:06)
[2019-06-21] MEDS ORDERED: LIDOCAINE 2% INJ-PF (100 MG/5 ML) SYRINGE ONE (11:07)
[2019-06-21] MEDS ORDERED: ACETAMINOPHEN 1,000 MG/100 ML RTUPB IV ONE ×2 (11:19→21:05)
[2019-06-21] MEDS ORDERED: TRANEXAMIC ACID INJ/PF 1,000 MG/10 ML SDV ONE (12:12)
[2019-06-21] MEDS: BUPIVACAINE INJ/PF LIPOSOME/PF 266 MG/20 ML SDV ONE ×2 (12:44→14:09)
[2019-06-21] MEDS ORDERED: OXYCODONE-ACETAMINOPHEN 5-325 MG TABLET PO PRN ×2 (13:46)
[2019-06-21] MEDS ORDERED: ONDANSETRON HCL INJ/PF 4 MG/2 ML SDV IV PRN (13:46)
[2019-06-21] MEDS ORDERED: DIPHENHYDRAMINE HCL 50 MG/ML VIAL IV PRN ×2 (13:46→15:05)
[2019-06-21] MEDS ORDERED: MEPERIDINE HCL/PF INJ 25 MG/1 ML DISP.SYRIN IV PRN (13:46)
[2019-06-21] MEDS ORDERED: MORPHINE SULFATE 10 MG/ML INJ IV PRN ×5 (13:46→15:05)
[2019-06-21] MEDS ORDERED: FENTANYL CITRATE INJ/PF 100 MCG/2 ML AMPUL IV PRN ×2 (13:46)
--- NOTE | 2019-06-21 14:59 | Operative Report ---
Operative Report DATE OF SURGERY: 06/21/19 PREOPERATIVE DIAGNOSIS: Right shoulder DJD POSTOPERATIVE DIAGNOSIS: Same OPERATION: Right total shoulder arthroplasty SURGEON: JEFF ALVARADO ANESTHESIA: GA COMPLICATIONS: None ESTIMATED BLOOD LOSS: 200 cc INTRAOPERATIVE FINDINGS: IMPLANTS: Arthrex universe vault lock large glenoid. Arthrex apex humeral stem 10 mm. Arthrex universe II humeral head PROCEDURE: Indication for above procedure: 59-year-old male with longstanding history of right shoulder discomfort. P atient had radiographic findings of osteoarthritis of the right shoulder. At that point we discussed treatment options attempted conservative management including intra-articular injections and anti-inflammatories without resolution of patient's symptoms. At that point decision was made to proceed with operative intervention. Risk and benefits were explained patient verbalized understanding consented for surgical procedure. Procedure In Detail: Patient was seen and evaluated in the preoperative holding area. The upper extremity was initialized and marked. Patient received 2g of Ancef IV for bacterial prophylaxis. Patient was taken back to the operative room where transferred to the operative table and placed under general anesthesia. Once they were adequately anesthetized patient placed in the beachchair position. Cervical spine was placed in neutral position all bony prominences were padded including nonoperative upper extremity and bilateral lower extremity. A surgical team debriefing was performed ensuring all instrumentation was available, the surgical procedure was discussed with possible concerns reviewed. The upper extremity was prepped with ChloraPrep draped in a sterile fashion. A timeout was done identifying correct patient, procedure and extremity everyone in attendance agree with this and verbalized no concerns. Deltopectoral interval was utilized just medial to the coracoid process. Cephalic vein was identified and retracted medially due to its location and ease of retraction. A small peripheral bleeding was controlled with bipolar cautery small veins were tied off. Self-retaining retractor was then placed underneath the conjoined tendon and deltoid. Clavicle pectoral fascia was then released along with the proximal 1 cm of the pectoralis major tendon. Biceps tendon was identified and tenodesed to pectoralis fascia. Circumflex vessels were then identified and tied off medially and laterally. The axillary nerve was identified via palpation along the medial border of the humeral neck. A subscapularis peel was then performed and tag stitches placed. The medial capsule was identified proximal to the axillary nerve and released. Reverse retractor was placed exposing the underlying glenoid. Advanced glenoid wear was identified. The anterior capsule was released to the 6 o'clock position. Any peripheral osteophytes were excised. The proximal humerus was then exposed and osteophytes removed. The cutting guide was placed and marked. Humeral head cut was performed. Then begin hand reaming up to a 7 mm reamer. Broaching began at 7 mm up to a 10 mm broach with good peripheral fit. The implant cover was then placed in the glenoid exposed. With the glenoid exposed the posterior capsule and superior capsule including remnant biceps was excised to adequately identify the superior border of the glenoid. The Arthrex VIP aiming arm was then utilized and pin placed along the central position obtaining good fixation. This was then overreamed in the face of the glenoid reamed. Pin was removed. The proximal and distal holes of the glenoid was then prepared. Wound was copiously irrigated with normal saline. A size large glenoid was chosen. Reamings from the humeral head was then placed along the glenoid while cement was prepared on the back table. Cement was pressurized 4 times into the superior and inferior holes of the glenoid and impacted. Small amount of cement was placed on the superior and inferior peg. Glenoid was then impacted into position and pressure was maintained until cement was complete. Wound was then copiously irrigated with normal saline. Excess osteophytes along the proximal humerus were excised. On the back table the Arthrex subscapularis repair system was utilized to drill holes were placed in the bicipital groove. A size 10 Arthrex universe stem was then implanted. The humeral head was then was trialed with a 52/20 humeral head. With the 40-50-60 rule there was adequate stability shoulder neutral position in greater than 40 degrees of external rotation. 50% bounce back with anterior to posterior directed pressure and greater than 60 degrees of internal rotation with the shoulder at abduction. There is no evidence of impingement. Wound was then copiously irrigated with normal saline and Betadine was placed for 1 minute and then irrigated. The size 52/20 humeral head was implanted. Subscapularis was repaired with the universe apex suture kit system obtaining excellent fixation. Patient had 40 degrees of extra rotation without tension on the repair. Small portion of the rotator interval was closed with FiberWire suture. Wound was copiously irrigated with normal saline. A mixture of 20 cc: 20 cc of saline and Exparel was injected. Deltopectoral interval was closed with interrupted 0 Vicryl suture. Subcutaneous tissues interrupted 4-0 Monocryl suture. Skin was closed with running subcuticular 4-0 Monocryl reinforced with Dermabond and Steri-Strips and a OpSite dressing placed. Longitudinal skin incision was made over patient's mass along the lateral deltoid. Blunt dissection was performed. A multiloculated lipoma was identifie d and isolated. Lipoma was then removed down to the muscle of the deltoid but not subfascial. No evidence of deep involvement. Any peripheral bleeding was controlled with cautery. Mass was sent to pathology for definitive diagnosis and formalin. Wound was copiously irrigated with normal saline. Subcutaneous tissues were closed with 4-0 Monocryl suture. Skin was closed with running subcuticular 4-0 Monocryl reinforced with Dermabond and Steri-Strips. Postoperative patient was placed in a sling and Cryo/Cuff. Sponge counts, instrument counts, needle counts were correct. Patient was then awoken from anesthesia. Transferred from the operating room table to the operating room stretcher. There was no intraoperative complications patient tolerated procedure well stable to PACU. Postoperative plan: Patient will follow in the office in 2 weeks at which point we will obtain radiographs. Patient will begin physical therapy for-6 weeks postoperatively.
[2019-06-21] MEDS ORDERED: OXYCODONE HCL IR 5 MG TABLET PO PRN (15:05)
[2019-06-21] MEDS ORDERED: ONDANSETRON 4 MG TAB.RAPDIS PO PRN (15:05)
[2019-06-21] MEDS ORDERED: FENTANYL CITRATE INJ/PF 100 MCG/2 ML AMPUL ONE (15:19)
[2019-06-21] MEDS: FENTANYL CITRATE INJ/PF 100 MCG/2 ML AMPUL IV PRN ×2 (15:20→15:30)
--- NOTE | 2019-06-21 15:59 | RADIOLOGY REPORT (SQ) ---
EXAM DESCRIPTION: SHOULDER RIGHT 2 OR MORE VIEWS COMPLETED DATE/TIME: 06/21/2019 3:50 pm REASON FOR STUDY: Post Op Xrays M19.011 PRIMARY OSTEOARTHRITIS, RIGHT SHOULDER COMPARISON: None. NUMBER OF VIEWS: Two views. TECHNIQUE: Internal and external rotation images acquired of the right shoulder. LIMITATIONS: None. FINDINGS: Shoulder arthroplasty with expected postoperative changes in the soft tissues. No fractur e. IMPRESSION: Satisfactory postop shoulder arthroplasty. TECHNICAL DOCUMENTATION: JOB ID: [id number] [employer]- All Rights Reserved Reading location - IP/workstation name: [email or web address]
[2019-06-21] MEDS ORDERED: INFLUENZA QUAD (6MOS+) 2019-20 VAC 0.5 ML SYR IM ONE (16:48)
[2019-06-21] MEDS ORDERED: RIVAROXABAN 10 MG TABLET PO SCH (17:00)
[2019-06-21] MEDS: PREGABALIN 75 MG CAPSULE PO SCH (17:40)
[2019-06-21] MEDS: KETOROLAC TROMETHAMINE INJ/PF 30 MG/1 ML SDV IV SCH ×2 (17:40→23:35)
[2019-06-21] MEDS: CEFAZOLIN SODIUM 2 GM in DEXTROSE 5%-WATER 100 ML IV SCH ×2 (17:41→23:36)
[2019-06-21] MEDS ORDERED: CEFAZOLIN 2 GM/D5W RTU 50 ML IV SCH (18:00)
[2019-06-21] MEDS: OXYCODONE HCL SR 10 MG TABLET PO SCH (21:16)
[2019-06-22] MEDS: KETOROLAC TROMETHAMINE INJ/PF 30 MG/1 ML SDV IV SCH ×2 (05:41→12:05)
[2019-06-22] MEDS: CEFAZOLIN SODIUM 2 GM in DEXTROSE 5%-WATER 100 ML IV SCH ×2 (05:41→12:04)
[2019-06-22] MEDS ORDERED: PANTOPRAZOLE SODIUM 40 MG TABLET.DR PO SCH (06:00)
[2019-06-22 06:46] LABS: HEMATOCRIT 35.9 % (37.9-51.0); HEMOGLOBIN 11.9 g/dL (13.5-17.0); MEAN CORPUSCULAR HEMOGLOBIN 29.6 pg (27.0-33.4); MEAN CORPUSCULAR VOLUME 90 fl (80-97); PLATELET COUNT 158 10^3/uL (150-450); RED BLOOD COUNT 4.01 10^6/uL (4.35-5.55); RED CELL DISTRIBUTION WIDTH 13.4 % (11.5-14.0); WHITE BLOOD COUNT 10.3 10^3/uL (4.0-10.5)
[2019-06-22 07:08] LABS: ANION GAP 9 (5-19); BLOOD UREA NITROGEN 13 mg/dL (7-20); CALCIUM 9.5 mg/dL (8.4-10.2); CARBON DIOXIDE 29 mmol/L (22-30); CHLORIDE 99 mmol/L (98-107); GLUCOSE 103 mg/dL (75-110); POTASSIUM 4.7 mmol/L (3.6-5.0)
[2019-06-22] MEDS: PREGABALIN 75 MG CAPSULE PO SCH (09:19)
[2019-06-22] MEDS: OXYCODONE HCL SR 10 MG TABLET PO SCH (09:20)
[2019-06-22 12:03] VITALS: BP 161/89
== END 2019-06-22 12:26 | disposition home or self-care (01) ==
LOC: INOR 08:22 → INTOOBSV 08:22 → 4S 16:17
PROVIDERS: ADMIT Orthopaedic Surgery; ATTEND Orthopaedic Surgery
DX: M19.011 Primary osteoarthritis, right shoulder (principal); D21.11 Benign neoplasm of connective and other soft tissue of right upper limb, including shoulder; Z87.891 Personal history of nicotine dependence; Z79.899 Other long term (current) drug therapy; Z79.1 Long term (current) use of non-steroidal anti-inflammatories (NSAID)
CPT/HCPCS: 23472; 23071; 86900; 86901; 36415 ×2; 86850; 85027; 80048; 88304 ×2; 73030; 94799; 94762 ×2; 97116; 97161; 97110; 97530; 97535; 97167; J2250; J0690 ×2; J1100; J0171; J3010 ×2; J2001; J1885 ×2; J2765; J2710; J2370; J2405; J7060 ×2; J7050; J2704; J3370; S0028; J0131; C9290; J3490 ×4; J1741; 01630; C1713; C1776